=== PATIENT | male | born 1965 | race Caucasian/White ===

== ENCOUNTER 2022-06-06 17:01 | Emergency (ER) | payer SELFPAY ==
[2022-06-06 17:53] LABS: ESTIMATED GFR 64 mL/min (>60)
== END 2022-06-06 18:35 | disposition home or self-care (01) ==
LOC: FB.ED 17:01
DX: R82.71 Bacteriuria (principal); Z91.048 Other nonmedicinal substance allergy status; Z79.899 Other long term (current) drug therapy
CPT/HCPCS: 36415; 80053; 81001; 85025; 99284

== ENCOUNTER 2023-02-26 07:28 | Day surgery (SDC) | payer MEDICAID ==
[2023-02-26] MEDS ORDERED: Midazolam 1 MG/ML 2 ML SDV IV ONE (07:29)
[2023-02-26] MEDS ORDERED: Glycopyrrolate 0.2 MG/ML 5 ML MDV IV ONE (07:29)
[2023-02-26] MEDS ORDERED: Propofol 200 MG/20 ML SDV IV ONE (07:29)
[2023-02-26] MEDS ORDERED: Lidocaine 2% 5 ML SDV IV ONE (07:29)
[2023-02-26] MEDS ORDERED: Sodium Chloride 0.9% 10 ML Syringe FLUSH PRN (07:30)
[2023-02-26] MEDS ORDERED: Lactated Ringers 1,000 ML IV SCH (07:30)
[2023-02-26] MEDS ORDERED: Simethicone Drops 40 MG/0.6 ML 30 ML Bottle ONE (09:31)
== END 2023-02-26 11:10 | disposition home or self-care (01) ==
LOC: FB.SDS 07:28
PROVIDERS: ATTEND Surgery
DX: Z12.11 Encounter for screening for malignant neoplasm of colon (principal); D12.6 Benign neoplasm of colon, unspecified; K40.90 Unilateral inguinal hernia, without obstruction or gangrene, not specified as recurrent; D17.79 Benign lipomatous neoplasm of other sites; K58.9 Irritable bowel syndrome, unspecified; Z87.891 Personal history of nicotine dependence
CPT/HCPCS: 00812; 88305; A9270-GY; J2250; J2704; J3490; J7120

== ENCOUNTER 2025-04-18 19:39 | Emergency (ER) | payer BC, MEDICAID ==
[2025-04-18] MEDS: Diphtheria,Pertussis(Acell),Tetanus Vaccine 0.5 ML Syringe IM ONE (20:15)
== END 2025-04-18 20:39 | disposition home or self-care (01) ==
LOC: FB.ED 19:39
DX: S01.01XA Laceration without foreign body of scalp, initial encounter (principal); Z91.048 Other nonmedicinal substance allergy status; Z23 Encounter for immunization; W22.8XXA Striking against or struck by other objects, initial encounter; Y93.89 Activity, other specified
CPT/HCPCS: 12004; 70450; 90471; 90715; 99283-25